=== PATIENT | female | born 1940 | race Caucasian/White ===

== ENCOUNTER 2018-01-17 09:25 | Inpatient (IN) | payer OTHER ==
[~2018-01-17] VITALS: Ht 162.6 cm; Wt 75.0 kg
[2018-01-17 09:30] VITALS: Ht 162.6 cm; Wt 75.0 kg
[2018-01-17] MEDS ORDERED: LANTUS SOLOS100 U/M1 SC (12:00)
[2018-01-17] MEDS ORDERED: COZAAR100 MG PO (12:01)
[2018-01-17] MEDS ORDERED: FUROSEMIDE20 MG PO (12:01)
[2018-01-17] MEDS ORDERED: JANUVIA100 M1 PO (12:02)
[2018-01-17] MEDS ORDERED: ASPIR 8181 MG PO (12:02)
[2018-01-17 13:14] VITALS: BP 157/65
[2018-01-17 13:17] LABS: MAGNESIUM 1.8 mg/dL (1.8-2.4)
[2018-01-17 13:18] LABS: CHOLESTEROL/HDL RATIO 2.6
[2018-01-17 13:26] LABS: T3 TOTAL 1.06 ng/mL
[2018-01-17 13:28] LABS: FREE T4 1.14 ng/dL (0.76-1.46); T4(THYROXINE) 8.6 ug/dL (4.7-13.3)
[2018-01-17] MEDS ORDERED: METFORMIN500 M1 PO (13:45)
[2018-01-17] MEDS ORDERED: LEVEMIR100 U/M1 SC ×2 (13:45)
[2018-01-17 14:52] LABS: PLATELET COUNT 156 x10^3mcL (130-400); RED CELL DISTRIBUTION WIDTH 13.7 % (11.5-14.5)
[2018-01-17 14:55] LABS: BASOPHIL % 0 % (0-2)
[2018-01-17 14:56] LABS: CALCIUM 8.5 mg/dL (8.5-10.1); CARBON DIOXIDE 22.9 mmol/L (21-32); CHLORIDE SERUM 105 mmol/L (98-107); CREATININE SERUM 0.9 mg/dL (0.6-1.0); GLUCOSE SERUM 223 mg/dL (74-106); POTASSIUM SERUM 4.4 mmol/L (3.5-5.1); SODIUM SERUM 139 mmol/L (136-145)
[2018-01-17 17:39] VITALS: BP 111/63
[2018-01-17 21:50] VITALS: BP 131/67
[2018-01-18 05:34] VITALS: BP 129/71
[2018-01-18 06:43] LABS: BASOPHIL % 0.2 % (0-2); PLATELET COUNT 137 x10^3mcL (130-400); RED CELL DISTRIBUTION WIDTH 14.1 % (11.5-14.5)
[2018-01-18 06:52] LABS: CALCIUM 8.1 mg/dL (8.5-10.1); CARBON DIOXIDE 27.5 mmol/L (21-32); CHLORIDE SERUM 108 mmol/L (98-107); CREATININE SERUM 1.1 mg/dL (0.6-1.0); GLUCOSE SERUM 166 mg/dL (74-106); MAGNESIUM 1.8 mg/dL (1.8-2.4); PHOSPHOROUS 3.2 mg/dL (2.5-4.9); POTASSIUM SERUM 4.3 mmol/L (3.5-5.1); SODIUM SERUM 142 mmol/L (136-145)
[2018-01-18 08:56] VITALS: BP 157/73
[2018-01-18 12:55] VITALS: BP 131/73
[2018-01-18 17:46] VITALS: BP 131/73
[2018-01-18 18:47] LABS: microscopic required? YES; urine erythrocyte NEGATIVE (NEGATIVE)
[2018-01-18 21:54] VITALS: BP 125/70
[2018-01-19 05:49] VITALS: BP 167/73
[2018-01-19 07:19] LABS: CALCIUM 8.2 mg/dL (8.5-10.1); CARBON DIOXIDE 28.8 mmol/L (21-32); CHLORIDE SERUM 107 mmol/L (98-107); CREATININE SERUM 0.9 mg/dL (0.6-1.0); GLUCOSE SERUM 101 mg/dL (74-106); MAGNESIUM 1.6 mg/dL (1.8-2.4); PHOSPHOROUS 2.8 mg/dL (2.5-4.9); POTASSIUM SERUM 3.7 mmol/L (3.5-5.1); SODIUM SERUM 144 mmol/L (136-145)
[2018-01-19 07:45] LABS: BASOPHIL % 0.2 % (0-2); PLATELET COUNT 146 x10^3mcL (130-400); RED CELL DISTRIBUTION WIDTH 14.3 % (11.5-14.5)
[2018-01-19 10:39] VITALS: BP 119/62
[2018-01-19 11:12] LABS: BILIRUBIN DIRECT 0.11 mg/dL (0.0-0.2); BILIRUBIN TOTAL 0.4 mg/dL (0.20-1.00); TOTAL PROTEIN, SERUM 6.9 g/dL (6.4-8.2)
[2018-01-19 11:16] LABS: ALBUMIN 3.2 g/dL (3.4-5.0)
[2018-01-19 16:24] VITALS: BP 145/57
[2018-01-19 21:38] VITALS: BP 120/54
[2018-01-20] VITALS (7 sets, daily range): BP systolic 108–137; BP diastolic 50–78
[2018-01-20 07:07] LABS: CALCIUM 8.6 mg/dL (8.5-10.1); CHLORIDE SERUM 110 mmol/L (98-107); CREATININE SERUM 1.1 mg/dL (0.6-1.0); GLUCOSE SERUM 209 mg/dL (74-106); MAGNESIUM 1.8 mg/dL (1.8-2.4); PHOSPHOROUS 3.2 mg/dL (2.5-4.9); POTASSIUM SERUM 4.7 mmol/L (3.5-5.1); SODIUM SERUM 145 mmol/L (136-145)
[2018-01-20 07:20] LABS: BASOPHIL % 0 % (0-2); PLATELET COUNT 128 x10^3mcL (130-400)
[2018-01-21 05:28] VITALS: BP 159/73
[2018-01-21 08:04] LABS: PLATELET COUNT 130 x10^3mcL (130-400); RED CELL DISTRIBUTION WIDTH 14.2 % (11.5-14.5)
[2018-01-21 08:06] LABS: BASOPHIL % 0 % (0-2)
[2018-01-21 08:21] LABS: CALCIUM 8.6 mg/dL (8.5-10.1); CARBON DIOXIDE 31.2 mmol/L (21-32); CHLORIDE SERUM 109 mmol/L (98-107); GLUCOSE SERUM 138 mg/dL (74-106); MAGNESIUM 2.2 mg/dL (1.8-2.4); PHOSPHOROUS 2.2 mg/dL (2.5-4.9); POTASSIUM SERUM 3.5 mmol/L (3.5-5.1); SODIUM SERUM 144 mmol/L (136-145)
[2018-01-21 09:50] VITALS: BP 135/61
[2018-01-21 14:00] VITALS: BP 122/55
[2018-01-21] MEDS ORDERED: XOP1.25 INH (14:11)
[2018-01-21] MEDS ORDERED: ROC1I IV (14:12)
[2018-01-21] MEDS ORDERED: LAC PO (14:13)
[2018-01-21] MEDS ORDERED: BUSPIRONE HCL10 MG PO (14:19)
[2018-01-21] MEDS ORDERED: ATIVAN0.5 M1 PO (14:20)
[2018-01-21] MEDS ORDERED: HEP5I SC (14:23)
[2018-01-21 17:56] VITALS: BP 119/57
[2018-01-21 20:27] VITALS: BP 130/54
[2018-01-22] VITALS (8 sets, daily range): BP systolic 105–150; BP diastolic 42–73
[2018-01-22 07:26] LABS: BASOPHIL % 0.2 % (0-2); PLATELET COUNT 147 x10^3mcL (130-400); RED CELL DISTRIBUTION WIDTH 13.8 % (11.5-14.5)
[2018-01-22 07:37] LABS: CALCIUM 8.8 mg/dL (8.5-10.1); CARBON DIOXIDE 31.6 mmol/L (21-32); CHLORIDE SERUM 106 mmol/L (98-107); CREATININE SERUM 0.9 mg/dL (0.6-1.0); GLUCOSE SERUM 143 mg/dL (74-106); PHOSPHOROUS 2.7 mg/dL (2.5-4.9); POTASSIUM SERUM 3.3 mmol/L (3.5-5.1); SODIUM SERUM 140 mmol/L (136-145)
[2018-01-22] MEDS ORDERED: COZAAR100 MG PO (17:41)
[2018-01-22 22:50] LABS: BASOPHIL % 0.2 % (0-2); PLATELET COUNT 172 x10^3mcL (130-400)
[2018-01-23 06:15] VITALS: BP 139/71
[2018-01-23 07:16] LABS: CALCIUM 8.3 mg/dL (8.5-10.1); CARBON DIOXIDE 34.6 mmol/L (21-32); CHLORIDE SERUM 107 mmol/L (98-107); CREATININE SERUM 0.9 mg/dL (0.6-1.0); GLUCOSE SERUM 86 mg/dL (74-106); SODIUM SERUM 143 mmol/L (136-145)
[2018-01-23 07:26] LABS: BASOPHIL % 0 % (0-2); PLATELET COUNT 155 x10^3mcL (130-400); RED CELL DISTRIBUTION WIDTH 13.5 % (11.5-14.5)
[2018-01-23] MEDS ORDERED: KLOR-CON M2020 MEQ PO (08:34)
[2018-01-23 08:59] VITALS: BP 142/74
== END 2018-01-23 10:23 | DRG 483 ==
LOC: ED 09:25 → DU 12:02 → MU 01-20 09:06 → DU 01-20 14:02
PROVIDERS: Family Medicine; Family Medicine Sports Medicine; Neuromusculoskeletal Medicine, Sports Medicine
PROC: 0PUD0JZ Supplement Left Humeral Head with Synthetic Substitute, Open Approach (ICD-10-PCS; 2018-01-19)
PROC: 0RRK0J6 Replacement of Left Shoulder Joint with Synthetic Substitute, Humeral Surface, Open Approach (ICD-10-PCS; principal; 2018-01-19 11:00)
DX: S42.292A Other displaced fracture of upper end of left humerus, initial encounter for closed fracture (principal); N17.0 Acute kidney failure with tubular necrosis; J96.21 Acute and chronic respiratory failure with hypoxia; E66.2 Morbid (severe) obesity with alveolar hypoventilation; S00.83XA Contusion of other part of head, initial encounter; G90.9 Disorder of the autonomic nervous system, unspecified; E11.65 Type 2 diabetes mellitus with hyperglycemia; I10 Essential (primary) hypertension; R00.0 Tachycardia, unspecified; E66.9 Obesity, unspecified; Z68.25 Body mass index [BMI] 25.0-25.9, adult; Z79.82 Long term (current) use of aspirin; Z79.4 Long term (current) use of insulin; Z66 Do not resuscitate; W18.2XXA Fall in (into) shower or empty bathtub, initial encounter; Y93.E1 Activity, personal bathing and showering; Y92.002 Bathroom of unspecified non-institutional (private) residence as the place of occurrence of the external cause
CPT/HCPCS: 76001; 82962; 83880; 84439; 94150; 97110-GP; 97116-GP; 97530-GP; C1713; C9359; J0330; J0690; J0696; J1644; J1815; J1885; J1940; J2250; J2270; J2405; J2704; J2710; J2916; J3010; J3490; J7030; P9016; Q0092; Q0163; Q9967